=== PATIENT | male | born 1995 | race Two or more races ===

== ENCOUNTER 2017-07-13 02:34 | Emergency (ER) | payer MEDICAID ==
[~2017-07-13] VITALS: Ht 185.4 cm; Wt 105.7 kg
[2017-07-13 03:55] VITALS: BP 121/94
== END 2017-07-13 05:26 | disposition home or self-care (01) ==
LOC: ER 02:40
DX: S01.411A Laceration without foreign body of right cheek and temporomandibular area, initial encounter (principal); S81.811A Laceration without foreign body, right lower leg, initial encounter; Y04.8XXA Assault by other bodily force, initial encounter; M25.531 Pain in right wrist; Y93.89 Activity, other specified; Y92.410 Unspecified street and highway as the place of occurrence of the external cause; Y99.8 Other external cause status
CPT/HCPCS: 70450; 71010; 73110; 73564